=== PATIENT | male | born 2000 | race Caucasian/White ===

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

== ENCOUNTER → 2021-02-26 | Outpatient (CLI) | payer MEDICAID, SELFPAY | END | disposition home or self-care (01) | PROVIDERS: PCP Family Medicine; Visit Provider Family Medicine | DX: Z11.52 Encounter for screening for COVID-19 (principal) | CPT/HCPCS: 87635; U0005; U0003 ==

== ENCOUNTER 2021-08-28 18:02 | Emergency (ER) | payer MEDICAID, SELFPAY ==
[2021-08-28 18:03] VITALS: BP 167/100; PULSE 99; RESP 16; TEMP 36.8; O2SAT 99; BMI 39.1
--- NOTE | 2021-08-28 18:21 | EX.ED.DYSGE1 ---
HPI History of Present Illness Chief Complaint: Constipation Narrative Narrative: Patient is here with the mother complaint of constipation for about a week, he is having bowel movements, he feels though it seems harder to push out hard stool, the stool sometimes seem like small pellets, he also feels at times or something stuck in his rectum, he has no history of constipation GI ailments, has had no nausea or vomiting he is eating and drink without difficulty recently ate Hazel's food without difficulty, per the mother he is has no past history, again he is passing stool and urine without difficulty except it seems harder, he took 1 glass of MiraLAX and some Dulcolax yesterday with no improvement PFSH PFSH Home Medications No Known/Unobtainable [No Known Home Medications] 02/21/15 [History Last Taken Unknown] Allergy/AdvReac Type Severity Reaction Status Date / Time codeine AdvReac Vomiting Verified 02/21/15 18:27 Social History Smoking Status: Never smoker ROS ROS ED Gastrointestinal Gastrointestinal: Reports constipation EXAM Physical Exam Narrative Exam Narrative: Patient is in no distress resting complained the bed vital signs are unremarkable the abdomen is soft nontender completely unremarkable exam exam negative, rectal exam with mother present and showed soft brown stool no pain no masses no abnormalities Const Vital Signs: 08/28/21 18:03 Temperature 98.2 F Temperature Source Temporal Pulse Rate 99 Respiratory Rate 16 Blood Pressure 167/100 H Blood Pressure Mean 122 Pulse Ox 99 Oxygen Delivery Method Room Air MDM MDM MDM Narrative Medical decision making narrative: Explained this to the mother and the patient and explained to her that we could need evaluation with labs etc. they declined I explained that likely he needs to take more MiraLAX on a more consistent basis in the Dulcolax high-fiber diet avoid Hazel's type food and follow-up with outpatient providers in a few days if not improved if symptoms change anyway she return to the emergency department they agree to that plan, again he is passing stool per rectum Home stable Final impression constipation Discharge Plan Triage Chief Complaint: Constipation ED Provider: Charo Scott Dx/Rx/DC Orders Clinical Impression: Constipation Instructions: ED Constipation (Adult) Prescriptions: No Action No Known Home Medications RF: 0 Primary Care Provider: Elijah Chisholm Referrals: Elijah Chisholm, [Primary Care Provider] - Activity Restrictions/Additional Instructions: High-fiber diet use the MiraLAX every 4-6 hours until loose stools return for change in symptoms Disposition Disposition: Home, Self Care
== END 2021-08-28 18:35 | disposition home or self-care (01) ==
LOC: ED 18:33
PROVIDERS: Emergency Provider Emergency Medicine; PCP Family Medicine; Visit Provider Emergency Medicine
DX: K59.00 Constipation, unspecified (principal)
CPT/HCPCS: 99282

== ENCOUNTER 2021-08-31 12:44 | Emergency (ER) | payer MEDICAID, SELFPAY ==
[2021-08-31 12:44] VITALS: BP 157/94; PULSE 109; RESP 16; TEMP 35.6; O2SAT 95; BMI 42.3
--- NOTE | 2021-08-31 12:58 | EDS_ITS ---
HPI History of Present Illness Chief Complaint: Constipation Informant: patient and parent Onset/Context/Timing Onset: Days Context: Gradual Onset Timing: Continuous Quality: Feel miserable with abdominal discomfort and constipation Location: Abdomen Current Severity: Mild Maximum Severity: Moderate Worsened by: Nothing specific Relieved by: Nothing Associated Symptoms Associated Symptoms: No vomiting no prior history of surgery Narrative Narrative: Patient is a 20-year-old male who presents because of constipation. He was seen on the nin. He has been taking MiraLAX every 6 hours. In the last 24 hours he has had breadsticks and checking. Today before that he had a very low fiber diet. He only eats once a day. There is no history of blood or mucus in the stool. Mother has history of Crohn's. He has no other complaints. Patient apparently was seen by his primary care physician. Review of prior records indicates that patient had elevated blood pressure that is significant for a 20-year-old. She has never had blood work will obtain basic metabolic panel and UA to assess for endorgan injury. Prior similar symptoms: Yes Recent Illness/Hospitalization: Yes (Yes for constipation no regarding work-up for high blood pressure) PFSH PFS Home Medications lisinopril 5 mg PO DAILY #30 tab 08/31/21 [Rx Last Taken Unknown] Allergy/AdvReac Type Severity Reaction Status Date / Time codeine AdvReac Vomiting Verified 02/21/15 18:27 Family History (Updated 08/31/21 @ 13:[address] Ru Boothe MD) Father Hypertension Surgical History no surgical history no surgical history Social History (Updated 08/31/21 @ 13:[address] Ru Boothe MD) household members: family Smoking Status: Never smoker substance use type: does not use ROS ROS ED Constitutional Constitutional ED: Denies chills, fever(s), subjective or sweats Eyes Eyes: Denies blurry vision, change in vision or diplopia Cardiovascular Cardiovascular: Denies chest pain or palpitations Respiratory/Chest Respiratory/Chest: Denies cough, dyspnea or dyspnea on exertion Gastrointestinal Gastrointestinal: Reports abdominal pain and constipation; Denies diarrhea, nausea or vomiting Genitourinary Genitourinary ED: Denies dysuria, hematuria or urinary frequency Musculoskeletal Musculoskeletal: Denies arthralgias, back pain, myalgias or neck pain Neurologic Neurologic: Denies headache(s), paresthesias or weakness Endocrine Endocrinology: Denies polydipsia, polyphagia or polyuria EXAM Physical Exam Const Vital Signs: 08/31/21 12:44 08/31/21 13:52 Temperature 96.1 F L Temperature Source Temporal Pulse Rate 109 H Respiratory Rate 16 Blood Pressure 157/94 H 134/83 H Blood Pressure Mean 115 100 Pulse Ox 95 Oxygen Delivery Method Room Air Positive well nourished, well developed and obese General Appearance ED: well developed and NAD; Negative for cyanotic, diaphoretic or pallor Nutritional Appearance: obese HEENT Reports dry mucous membranes HEENT Narrative: Ears normal. Negative for trauma or tenderness Mouth ED: Yes dry mucous membranes Mouth: dry mucous membranes Eyes PERRL and EOMs intact bilaterally General Eye ED: Negative for pale conjunctiva or scleral icterus Resp normal respiratory effort and clear to auscultation bilaterally Cardio regular rate, regular rhythm, S1 normal heart sound, S2 normal heart sound and no murmurs GI normal to inspection, nondistended, normoactive bowel sounds, non-tender and non-distended Palpation: soft Back/Spine no CVA tenderness Extremity normal to inspection General Extremety ED: Negative for edema or tenderness General Extremity: Negative for edema Neuro oriented x3, CN's II-XII intact bilaterally and no sensory deficits noted Sensorium / Orientation: alert Motor Exam: strength 5/5 throughout Psych Mood & Affect: depressed Skin no rashes or lesions noted and no wounds General Skin Exam: Negative for jaundice or pallor MDM MDM MDM Narrative Medical decision making narrative: Patient has constipation because of low fiber diet. Since patient's had numerous elevated high blood pressure readings in his jehovah's witness been evaluated for this and there is a family history will obtain basic metabolic panel and UA to assess for endorgan injury. With regards to the constipation mother has been informed this can be treated as an outpatient. Recommend 10 ounces of mag citrate in the morning 4 hours later a glass of MiraLAX and continue to drink a glass of MiraLAX every hour until patient has results. Lab Data Attestation: I reviewed the patient's lab results. Lab results narrative: BUN and creatinine are unremarkable. There is mild proteinuria noted on urinalysis. Patient's blood pressure still elevated and especially for age. We will start on low-dose of lisinopril have him follow-up with his doctor. Labs: Laboratory Results - last 24 hr 08/31/21 08/31/21 13:25 14:18 Sodium 139 Potassium 3.5 Chloride 106 Carbon Dioxide 28.0 Anion Gap 5 BUN 8 Creatinine 0.84 Estim Creat Clear Calc 131.15 Est GFR (MDRD) Af Amer 149 Est GFR (MDRD) Non-Af 123 BUN/Creatinine Ratio 9.5 L Glucose 107 H Calcium 9.2 Urine Color Yellow Urine Clarity Clear Urine pH 6.5 Ur Specific [place] 1.010 Urine Protein 15 H Urine Glucose (UA) Normal Urine Ketones Negative Urine Occult Blood Negative Urine Nitrite Negative Urine Bilirubin Negative Urine Urobilinogen Normal Ur Leukocyte Esterase Negative Urine RBC 0 SEEN Urine WBC 0 SEEN Ur Squamous Epith Cells 0 SEEN Urine Bacteria 0 SEEN Urine Mucus 0 SEEN Discharge Plan Triage Chief Complaint: Constipation ED Provider: Ru Boothe Dx/Rx/DC Orders Clinical Impression: Hypertension, Isolated proteinuria, Obstipation Instructions: ED Constipation (Adult), ED Hypertension New Begin Treatment Prescriptions: New lisinopril 5 mg tablet 5 mg PO DAILY Qty: 30 RF: 0 Primary Care Provider: Elijah Chisholm Referrals: Elijah Chisholm DO [Primary Care Provider] - Activity Restrictions/Additional Instructions: You were prescribed a blood pressure medicine. You need to take it daily. You need to contact your doctor for follow-up appointment in 2 weeks for blood pressure recheck. You will need to talk to your doctor regarding changing your lifestyle habits. With regards to the constipation, my recommendation are as follows: 10 ounces of mag citrate in the morning upon awakening 4 hours after you drink the mag citrate 1 glass of MiraLAX. Continue drinking 1 glass of MiraLAX every hour until you have results. You need to increase the fiber in your diet. Recommend MiraLAX twice a day for 1 week starting on Thursday then 1 glass daily. Disposition Disposition: Home, Self Care
[2021-08-31 13:47] LABS: Anion Gap 5 (5-15); BUN 8 mg/dL (7-18); BUN/Creat Ratio 9.5 RATIO (10-20); Calcium,Total 9.2 mg/dL (8.5-10.1); Chloride 106 mmol/L (98-107); Creatinine, Serum 0.84 mg/dL (0.70-1.30); EST Glomerular Filtration Rate 123 mL/min (>60); Est Glom Filt Rate - Afr Amer 149 mL/min (>60); Estimated Creatinine Clearance 131.15 ml/min; Glucose 107 mg/dL (74-106); Potassium 3.5 mmol/L (3.5-5.1); Sodium Level 139 mmol/L (136-145)
[2021-08-31 13:52] VITALS: BP 134/83
[2021-08-31 14:22] LABS: Bacteria 0 SEEN /hpf (None Seen); Mucous, Urine 0 SEEN /hpf (<or=2+); Red Blood Cells-Urine 0 SEEN /hpf (0-5); Squamous Epithelial Cells - UA 0 SEEN /hpf (0-5); White Blood Cells 0 SEEN /hpf (0-5)
[2021-08-31 14:29] LABS: Color, Urine Yellow (Yellow); Glucose, Dipstick Normal (Normal); Ketone-Dipstick Negative (Negative); Leukocyte Esterase-Dipstick Negative /ul (Negative); Nitrite-Dipstick Negative (Negative); Occult Blood-Urine Negative /ul (Negative); Protein-Dipstick 15 mg/dl (Negative); Urine Bilirubin Dipstick Negative (Negative); Urine Clarity Clear (Clear); Urine Urobilinogen Normal (Normal); Urine pH 6.5 (5.0 - 8.0)
[2021-08-31 14:47] VITALS: BP 148/73; PULSE 105; RESP 17; O2SAT 98
== END 2021-08-31 14:51 | disposition home or self-care (01) ==
PROVIDERS: Emergency Provider Emergency Medicine; PCP Family Medicine; Visit Provider Emergency Medicine
DX: K59.00 Constipation, unspecified (principal); Z68.41 Body mass index [BMI] 40.0-44.9, adult; I10 Essential (primary) hypertension; R80.0 Isolated proteinuria; E66.9 Obesity, unspecified; Z82.49 Family history of ischemic heart disease and other diseases of the circulatory system
CPT/HCPCS: 80048; 81001; 99283; A4216

== ENCOUNTER → 2022-02-28 | Outpatient (CLI) | payer MEDICAID, SELFPAY | END | disposition home or self-care (01) | PROVIDERS: PCP Family Medicine; Visit Provider Family Medicine | DX: L98.499 Non-pressure chronic ulcer of skin of other sites with unspecified severity (principal) | CPT/HCPCS: 87070; 87077; 87186; 87205 ==